=== PATIENT | male | born 1955 | race Caucasian/White ===

== ENCOUNTER 2016-07-27 05:18 | Emergency (ER) | payer OTHER ==
[2016-07-27 06:26] LABS: INR 1.01 (0.9-1.2); PROTHROMBIN TIME 12.9 SECONDS (11.7-14.0); PTT 28.6 SECONDS (23.2-31.4)
[2016-07-27 06:30] LABS: BASOPHIL 0.7 % (0-2); EOSINOPHIL 2.6 % (0-5); HCT 44.4 % (42.0-52.0); HGB 15.7 g/dl (13.2-18.0); LYMPHOCYTE 17.6 % (15-48); MCH 30.7 pg (25.0-31.0); MCHC 35.4 g/dL (32.0-36.0); MCV 86.7 fL (78.0-100.0); MONOCYTE 9.1 % (0-12); MPV 10.4 fL (6.0-9.5); PLT 164 K/uL (150-400); RBC 5.12 M/uL (4.70-6.00); RDW 13.5 % (11.5-14.0); WBC 7.6 K/uL (4.0-10.5)
[2016-07-27 06:37] LABS: ALBUMIN 4.1 g/dL (3.4-4.8); BILIRUBIN - TOTAL 0.6 mg/dL (0.1-1.0); CREATININE 1.5 mg/dL (0.7-1.2); GLOBULIN (CALCULATION) 3.3 g/dL (2.2-4.2); POTASSIUM 4.1 mmol/L (3.5-5.1); TOTAL PROTEIN 7.4 g/dL (6.4-8.3)
[2016-07-27 07:20] LABS: BAND 5 % (0-10); BASOPHIL(M) 2 % (0-2); EOSINOPHIL(M) 2 % (0-5); LYMPHOCYTE(M) 17 % (15-48); MONOCYTE(M) 6 % (0-12); NEUTROPHILS(M) 65 % (41-80); PLATELET ESTIMATE NORMAL; TOTAL CELL COUNT 100; VARIANT LYMPHOCYTE 3
[2016-07-27 07:21] LABS: PLATELET MORPHOLOGY NORMAL
== END 2016-07-27 07:19 | disposition home or self-care (01) ==
LOC: FER 05:18
PROVIDERS: Emergency Medicine
DX: H81.10 Benign paroxysmal vertigo, unspecified ear (principal); N28.9 Disorder of kidney and ureter, unspecified; J90 Pleural effusion, not elsewhere classified; E03.9 Hypothyroidism, unspecified; Z88.0 Allergy status to penicillin; Z79.899 Other long term (current) drug therapy
CPT/HCPCS: 36415; 70450; 71010; 80053; 84484; 85610; 85730; 93005; J2405

== ENCOUNTER 2020-04-29 08:29 | Emergency (ER) | payer MEDICARE, OTHER ==
[2020-04-29 09:14] LABS: BASOPHIL 0.8 % (0-2); EOSINOPHIL 3.5 % (0-7); HCT 46.1 % (42.0-52.0); HGB 15.6 g/dl (13.2-18.0); LYMPHOCYTE 27.9 % (15-48); MCHC 33.8 g/dL (32.0-36.0); MCV 88.7 fL (78.0-100.0); MONOCYTE 8.1 % (0-12); MPV 9.9 fL (6.0-9.5); NEUTROPHIL 59.5 % (41-80); NRBC 0; PLT 165 K/uL (150-400); RDW 12.7 % (11.5-14.0); WBC 6.1 K/uL (4.0-10.5)
[2020-04-29 09:42] LABS: BILIRUBIN NEGATIVE (NEGATIVE); BLOOD NEGATIVE Ery/uL (NEGATIVE); CLARITY CLEAR (CLEAR); COLOR YELLOW (YELLOW); GLUCOSE (U) NORMAL (NORMAL); LEUKOCYTES NEGATIVE Leu/uL (NEGATIVE); NITRITE NEGATIVE (NEGATIVE); PROTEIN NEGATIVE (NEGATIVE); SPECIFIC GRAVITY >=1.030 (1.001-1.030); UROBILINOGEN 0.2 mg/dL (0.2-1.0); pH 5.5 (5.0-9.0)
[2020-04-29 09:44] LABS: BUN/CREAT RATIO (CALC) 19.1 RATIO; CREATININE 1.31 mg/dL (0.67-1.17); POTASSIUM 4.3 mmol/L (3.5-5.1)
[2020-04-29] MEDS ORDERED: DICLOFENAC SODI75 MG PO (09:56)
== END 2020-04-29 10:10 | disposition home or self-care (01) ==
LOC: FER 08:29
PROVIDERS: Emergency Medicine
DX: S30.0XXA Contusion of lower back and pelvis, initial encounter (principal); F17.210 Nicotine dependence, cigarettes, uncomplicated; W00.0XXA Fall on same level due to ice and snow, initial encounter; Y92.009 Unspecified place in unspecified non-institutional (private) residence as the place of occurrence of the external cause
CPT/HCPCS: 36415; 72131; 80048; 81003; 85025